=== PATIENT | male | born 1965 | race Caucasian/White ===

== ENCOUNTER → 2016-11-26 | Outpatient (CLI) | payer OTHER ==
--- NOTE | 2016-11-26 17:19 | KCIC ---
PROCEDURE MR of the right shoulder HISTORY Acute right shoulder pain. No surgery. Symptoms for 3 months, after lifting injury. COMPARISON None TECHNIQUE Standard noncontrast images are obtained. FINDINGS The acromioclavicular joint is mildly degenerative. There is mild thickening and increased signal within rotator cuff tendons compatible with tendinosis. No measurable fluid defect or rotator cuff rupture. No significant subdeltoid bursal fluid. Small glenohumeral joint effusion. Degenerative tear of the superior labrum also extending into the posterior labrum. Biceps tendinosis at the bicipital groove entrance without rupture. No bone lesion or acute fracture. No acute soft tissue injury. IMPRESSION 1. Generalized rotator cuff tendinosis without measurable tear or rupture. 2. Degenerative tear of the posterosuperior labrum. Electronically signed by: Zia Hobbs MD (Nov 26, 2016 17:17:37)
== END | disposition home or self-care (01) ==
LOC: KCIC MRI 16:08
PROVIDERS: ATTEND Family Medicine
DX: M25.511 Pain in right shoulder (principal)
CPT/HCPCS: 73221